=== PATIENT | female | born 2005 | race Caucasian/White ===

== ENCOUNTER 2023-08-19 13:48 | Emergency (ER) | payer BC, OTHER ==
[2023-08-19 14:13] VITALS: BP 145/87; PULSE 99; RESP 20; TEMP 97.6; O2SAT 99
--- NOTE | 2023-08-19 14:40 | ERPHSYRPT ---
- History of Present Illness Time Seen by Provider: 08/19/23 14:38 Source: patient Exam Limitations: no limitations Patient Subjective Stated Complaint: Right knee pain Triage Nursing Assessment: Patient ambulated back to ED with slow and steady ga it. Patient A+O X 3. Patient's skin pink, warm and dry. Patient complains of right knee pain for one month. Patient has hx of Osteochondritis dissecans and had a right knee surgery in 2021. Patient denies injury or trauma to area. Patient complains of pain when bearing weight to right knee 10/10. Right knee noted to be swollen. Physician History: Patient complains of right knee pain for one month. Patient has hx of Osteochondritis dissecans and had a right knee surgery in 2021. Patient denies injury or trauma to area. Patient complains of pain when bearing weight to right knee 10/10. Right knee noted to be swollen. Occurred: other (for one month) Allergies/Adverse Reactions: No Known Drug Allergies Allergy (Verified 08/19/23 13:53) Home Medications: Lisdexamfetamine Dimesylate [Vyvanse] 70 mg PO DAILY 09/07/12 [History] Melatonin/Pyridoxine HCl (B6) [Melatonin 5 mg Tablet] 1 each PO HS 03/24/16 [History] Trazodone HCl 50 mg [Desyrel 50 mg] 50 mg PO HS 03/24/16 [History] Hx Tetanus, Diphtheria Vaccination/Date Given: Yes Hx Influenza Vaccination/Date Given: No Hx Pneumococcal Vaccination/Date Given: No Immunizations Up to Date: Yes Travel Risk - International Travel Have you traveled outside of the country in past 3 weeks: No - Emerging Infectious Disease Are you exhibiting symptoms associated with any current EIDs: No - Review of Systems Constitutional: No Fever, No Chills Eyes: No Symptoms Ears, Nose, & Throat: No Symptoms Respiratory: No Cough, No Dyspnea Cardiac: No Chest Pain, No Edema, No Syncope Abdominal/Gastrointestinal: No Abdominal Pain, No Nausea, No Vomiting, No Diarrhea Genitourinary Symptoms: No Dysuria Musculoskeletal: Joint Pain (right knee), No Back Pain, No Neck Pain, No Deformity, No Fall, No Joint Swelling Skin: No Rash Neurological: No Dizziness, No Focal Weakness, No Sensory Changes Psychological: No Symptoms Endocrine: No Symptoms All Other Systems: Reviewed and Negative - Past Medical History Pertinent Past Medical History: Yes Musculoskeletal History: Other Psycho-Social History: Attention Deficit Disorder - Past Surgical History Past Surgical History: Yes Musculoskeletal: Orthopedic Surgery Other Surgical History: rt elbow-osteo surgery (repair 05/12). Right knee 06/19. Osteochondritis dissecans - Female History Hx Last Menstrual Period: two weeks ago Hx Now: No - Social History Smoking Status: Never smoker Exposure to second hand smoke: No Drug Use: marijuana Patient Lives Alone: No - Nursing Vital Signs Nursing Vital Signs: Initial Vital Signs Temperature 97.6 F 08/19/23 13:55 Pulse Rate 99 H 08/19/23 13:55 Respiratory Rate 20 08/19/23 13:55 Blood Pressure 145/87 08/19/23 13:55 O2 Sat by Pulse Oximetry 99 08/19/23 13:55 Pain Scale Pain Intensity 10 - Physical Exam General Appearance: no apparent distress Eyes, Ears, Nose, Throat Exam: normal ENT inspection Neck Exam: normal inspection Cardiovascular/Respiratory Exam: chest non-tender Gastrointestinal/Abdominal Exam: non-tender Back Exam: normal inspection Hips Exam: bilateral: non-tender Legs Exam: bilateral leg: non-tender Knees Exam: right knee: pain (knee cap area), soft tissue tenderness SpO2: 99 - Radiology Exams Knee X-ray Interpretation: Reviewed by me Ordered Tests: Active Orders 24 hr Category Date Time Status KNEE (3 VIEWS) Stat Exams 08/19/23 14:13 Ordered - Progress Progress: improved Counseled pt/family regarding: need for follow-up, rad results Medical Desision Making - Diagnostic Testing Diagnostic test were ordered, analyzed, and reviewed by me: Yes Radiological Interpretation: Reviewed by me - Risk of complications Minimal Risk: Minimal risk of morbidity - Departure Departure Disposition: Home Clinical Impression: Chondromalacia of patella, right Condition: Stable Critical Care Time: No Referrals: HOLLY ANDERSON MD [Primary Care Provider] - Follow up/PCP as directed Instructions: Knee Pain (DC) Additional Instructions: Discharge/Care Plan ERIKA MEJIA was seen on 08/19/23 in the Emergency Room. The patient was counseled regarding Diagnosis,Lab results, Imaging studies, need for follow up and when to return to the Emergency Room. Prescriptions given: Discharge Note I have spoken with the patient and/or caregivers. I have explained the patient's condition, diagnosis and treatment plan based on the information available to me at this time. I have answered the patient's and/or caregiver's questions and addressed any concerns. The patient and/or caregivers have as good understanding of the patient's diagnosis, condition and treatment plan as can be expected at this point. The vital signs have been stable. The patient's condition is stable and appropriate for discharge from the emergency department. The patient will pursue further outpatient evaluation with the primary care physician or other designated or consulting physician as outlined in the discharge instructions. The patient and/or caregivers are agreeable to this plan of care and follow-up instructions have been explained in detail. The patient and/or caregivers have received these instruction. The patient/and or caregivers are aware that any significant change in condition or worsening of symptoms should prompt an immediate return to this or the closest emergency department or call 911. ERIKA MEJIA was seen on 08/19/23 n the Emergency Room. At that time you were treated for an emergent condition, during your visit Laboratory, Radiology and/or other procedures may have been ordered. It is very important that you follow-up with your Primary Care Physician HOLLY ANDERSON within the next 24-48 hours to review your Emergency Room visit and the final results of testing that was ordered. Some test results such as Urine Cultures, Blood Cultures, and other cultures if ordered will not be finalized for 24-48 hours. If you do not have a Primary Care Provider please call the medical records department at [phone] ext [phone] to obtain a copy of your results or you may sign into our patient portal to obtain these results by visiting us @ [email or web address] and completing the following steps: 1. Click on the Patient Portal link 2. Click the Patient Self Enrollment Link to complete the enrollment form and entering your 3. Once the enrollment form is completed you will receive an email with a temporary ID and password at the email address you provided. 4. Next choose a user name and password. Your user name must be at least 4 characters long and your password must be at least 4 characters long. 5. Choose a security question from the list and provide your answer to the question. If you already have signed into the Health Portal you may access your Health Care Information 19/12 by the following steps: 1. Login to our website @ [email or web address] 2. Enter your original user name and password. FAQS The [facility] Health Portal is an online tool that contains your Lab Results, Radiology Reports, Visit History, Discharge Instructions and Health Summary Lab and Radiology Results will not be available for 72 hours on the portal. The Portal is a secure site, passwords are encryted and URLs are re-written so they cannot be copied and pasted. You and authorized family members are the only ones who can access your Portal. Also there is a timeout feature that protects your information if you leave the Portal page open. If you have technical difficulty please use the Contact Us link on the page this will allow you to submit any questions you have regarding the Portal or you may contact the Medical Record Department at [phone] ext [phone].
--- NOTE | 2023-08-19 20:24 | XRAY ---
Indication: Pain 1 month. Comparison: None 3 view right knee demonstrates osteopenia, tiny lateral heterotopic ossifications, and tiny nonspecific effusion. No other bony, articular, or soft tissue abnormalities.
== END 2023-08-19 15:24 | disposition home or self-care (01) ==
LOC: ED 13:48
DX: M22.41 Chondromalacia patellae, right knee (principal); M25.561 Pain in right knee; Z79.899 Other long term (current) drug therapy
CPT/HCPCS: 73562; 99282; L1830